=== PATIENT | female | born 1965 | race Caucasian/White ===

== ENCOUNTER 2017-03-18 10:37 | Emergency (ER) | payer OTHER ==
[~2017-03-18] VITALS: Ht 172.7 cm; Wt 64.4 kg
--- NOTE | 2017-03-18 11:49 | PHYS DOC ---
Past Medical History Past Medical History: Endometriosis, Other Additional Past Medical Histor: CROHNS Past Surgical History: Other Additional Past Surgical Histo: UTERINE ABLASION Alcohol Use: Occasionally Drug Use: None Adult General Chief Complaint Chief Complaint: CHEST PAIN HPI HPI Patient is a 51 year old female who presents with 2 weeks of constant left chest wall pain that has been migratory. Started in her left lower anterior chest and has migrated from the lateral chest around to the anterior upper chest. She states the pain is achy and worse with range of motion of her thorax or left shoulder. She has been taking NSAIDs for her pain, but stopped this for GI upset associated with Crohn's. She denies dyspnea, cough, leg pain or swelling, hemoptysis, palpitations, diaphoresis, nausea or vomiting, fever or chills, rash, trauma, numbness, tingling, weakness, back pain. Review of Systems Review of Systems Constitutional: Denies fever or chills [] Eyes: Denies change in visual acuity, redness, or eye pain [] HENT: Denies nasal congestion or sore throat [] Respiratory: Denies cough or shortness of breath [] Cardiovascular: No additional information not addressed in HPI [] GI: Denies abdominal pain, nausea, vomiting, bloody stools or diarrhea [] : Denies dysuria or hematuria [] Musculoskeletal: Denies back pain or joint pain [] Integument: Denies rash or skin lesions [] Neurologic: Denies headache, focal weakness or sensory changes [] Endocrine: Denies polyuria or polydipsia [] Current Medications Current Medications Current Medications Medications (Trade) Dose Ordered Sig/[facility] Start Time Stop Time Status Last Admin Dose Admin Dexamethasone (Decadron) 10 mg 1X STAT 03/18/17 12:51 03/18/17 12:53 DC 03/18/17 13:05 10 MG Allergies Allergies Allergies Coded Allergies Type Severity Reaction Last Updated Verified Penicillins Allergy Intermediate 03/18/17 No Physical Exam Physical Exam Constitutional: Well developed, well nourished, no acute distress, non-toxic appearance. [] HENT: Normocephalic, atraumatic, bilateral external ears normal, oropharynx moist, nose normal. [] Eyes: PERRLA, EOMI. [] Neck: Normal range of motion, supple. [] Cardiovascular:Heart rate regular rhythm [] Lungs & Thorax: Bilateral breath sounds clear to auscultation. Has chest wall tenderness to left anterior superior chest with no visual or palpable abnormality that duplicates symptoms [] Abdomen: Bowel sounds normal, soft, no tenderness, no masses, no pulsatile masses. [] Skin: Warm, dry, no erythema, no rash. [] Back: Normal range of motion. [] Extremities: No joint tenderness, ROM intact, no edema. [] Neurologic: Alert and oriented X 3, normal motor function, normal sensory function, no focal deficits noted. [] Psychologic: Affect normal, judgement normal, mood normal. [] Current Patient Data Vital Signs Vital Signs Date Time Temp Pulse Resp B/P (MAP) Pulse Ox O2 Delivery O2 Flow Rate FiO2 03/18/17 12:29 63 18 110/66 (81) 96 Room Air 03/18/17 11:05 98.4 98.4 Lab Values Laboratory Tests Test 03/18/17 11:53 POC Troponin I 0.00 ng/ml (<0.08) EKG EKG EKG as interpreted by me as normal sinus rhythm, rate 67, no ST-T changes, normal intervals, no ectopy Radiology/Procedures Radiology/Procedures Chest xray as interpreted by me with no acute cardiopulmonary disease process Course & Med Decision Making Course & Med Decision Making Pertinent Labs and Imaging studies reviewed. (See chart for details) Workup is unremarkable. Suspect musculoskeletal chest wall pain. Discussed supportive care. Return precautions given. She understands and agrees with plan. Dragon Disclaimer Blancaon Disclaimer This electronic medical record was generated, in whole or in part, using a voice recognition dictation system. Departure Departure Impression: Primary Impression: Chest wall pain Disposition: 01 HOME, SELF-CARE Condition: STABLE Referrals: NO PCP (PCP) Patient Instructions: Chest Wall Pain, [id number] Additional Instructions: Take Tylenol as needed for moderate pain. Take hydrocodone as needed for severe pain. Do not drink, drive or operate heavy machinery after taking hydrocodone as it may make you sleepy. Follow-up with your primary care doctor. Return for any concerns. Scripts Hydrocodone Bit/Acetaminophen (HYDROCODONE-APAP 5-325 ) 1 Each Tablet 1 TAB PO PRN Q6HRS Y for PAIN, #6 TAB 0 Refills Prov: Pham MORROW MD 03/18/17 Pham MORROW MD Mar 18, 2017 11:49
--- NOTE | 2017-03-18 12:19 | RAD ---
Indication left chest pain for 2 weeks. PA and lateral views of the chest were obtained. No prior imaging is available. The heart and pulmonary vessels appear normal. The lungs are clear. There is no pleural fluid or pneumothorax. The bony structures are grossly intact. IMPRESSION: No acute or focal process is seen in the chest
[2017-03-18] MEDS ORDERED: HYDR-2758 PO (12:22)
[2017-03-18 12:29] VITALS: BP 110/66
--- NOTE | 2017-03-18 12:46 | EKG ---
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
[2017-03-18] MEDS ORDERED: DEXAMETHASONE 4 MG TABLET PO STA (12:51)
== END 2017-03-18 13:06 | disposition home or self-care (01) ==
LOC: ER 10:37
DX: R07.89 Other chest pain (principal); K50.90 Crohn's disease, unspecified, without complications; Z88.0 Allergy status to penicillin
CPT/HCPCS: 71020; 84484; 93005; 99284; J8540